=== PATIENT | female | born 1935 | race Hispanic/Latino ===

== ENCOUNTER 2018-08-09 07:23 | Day surgery (SDC) | payer MEDICARE ==
[2018-08-09] MEDS ORDERED: ECOTRIN PO ONE (08:03)
[2018-08-09 08:42] LABS: Basophils % (Auto) 0.6 % (0.0-1.8); Eosinophils # (Auto) 0.1 K/mm3 (0.0-0.4); Eosinophils % (Auto) 1.8 % (0.0-4.3); Hematocrit 39.6 % (30.3-42.9); Hemoglobin 13.3 gm/dl (10.1-14.3); Lymphocytes # (Auto) 1.3 K/mm3 (1.2-5.4); Lymphocytes % (Auto) 28.8 % (13.4-35.0); Mean Corpuscular HGB Conc 34 % (30-34); Mean Corpuscular Volume 94 fl (79-97); Monocytes # (Auto) 0.4 K/mm3 (0.0-0.8); Monocytes % (Auto) 8.1 % (0.0-7.3); Platelet Count 159 K/mm3 (140-440); Red Blood Count 4.23 M/mm3 (3.65-5.03); Red Cell Distribution Width 13.2 % (13.2-15.2)
[2018-08-09 08:53] LABS: INR 0.91 (0.87-1.13)
[2018-08-09 08:54] LABS: Partial Thromboplastin Time 26.4 Sec. (24.2-36.6)
[2018-08-09 08:57] LABS: BUN/Creatinine Ratio 33; Blood Urea Nitrogen 23 mg/dL (7-17); Calcium 9.3 mg/dL (8.4-10.2); Hemolysis Index 4
[2018-08-09] MEDS: NACL 0.9% 500 ML 500 ML IV SCH ×2 (09:03→11:11)
[2018-08-09] MEDS ORDERED: HEPARIN/NS 5000 UNIT/500ML(CATH LAB) 1,000 ML IR ONE (10:05)
[2018-08-09] MEDS ORDERED: VERSED ONE (10:51)
[2018-08-09] MEDS: SUBLIMAZE ONE ×2 (11:08→11:17)
[2018-08-09] MEDS: XYLOCAINE 2% INFILTRATI ONE ×2 (11:10→11:14)
[2018-08-09] MEDS: CALAN ONE ×3 (11:10→11:15)
[2018-08-09] MEDS: HEPARIN 10,000 UNITS/10 ML ONE ×3 (11:10→11:15)
[2018-08-09] MEDS: NITROGLYCERIN SYRINGE 3 ML ONE ×3 (11:11→11:15)
--- NOTE | 2018-08-09 13:33 | Short Stay Summary ---
Short Stay Documentation Date of service: 08/09/18 - History H&P: obtained from office - Allergies and Medications Current Medications: Allergies No Known Allergies Allergy (Unverified 08/09/18 07:24) Home Medications Medication Instructions Recorded Confirmed Last Taken Type Apixaban [Eliquis] 5 mg PO BID #60 tablet 08/09/18 Unknown Rx Aspirin [Aspirin BABY CHEW TAB] 81 mg PO QDAY 08/09/18 08/09/18 08/07/18 History 1 tab Gabapentin 600 mg PO TID 08/09/18 08/09/18 08/08/18 History 1 tab Montelukast [Singulair] 10 mg PO QPM 08/09/18 08/09/18 08/08/18 History 1 tab traMADol [Ultram 50 MG tab] 50 mg PO DAILY 08/09/18 08/09/18 08/08/18 History 1 tab Active Medications Sodium Chloride (Nacl 0.9% 500 Ml) 500 mls @ 50 mls/hr IV DIRECT LATASHA Stop: 08/09/18 18:59 Last Admin: 08/09/18 11:11 Dose: 50 mls/hr Documented by: - Brief post op/procedure progress note Date of procedure: 08/09/18 Pre-op diagnosis: cp; abnormal stress test Post-op diagnosis: same Procedure: LHC - see dictated cath report Anesthesia: local Estimated blood loss: none Condition: stable - Disposition Condition at discharge: Good Disposition: [id number] TO HOME OR SELFCARE - Discharge Diagnoses (1) Chest pain Status: Chronic (2) Abnormal stress test Status: Chronic (3) Atrial fibrillation Status: Chronic (4) Hyperlipidemia Status: Chronic Short Stay Discharge Plan Activity: advance as tolerated Diet: low cholesterol Wound: open to air, keep clean and dry, per your surgeon's advice Additional Instructions: follow up with Primary Medical Doctor in 1 week, return to ER for medical emergencies. Follow up with: JUAN CARLOS DILL MD [Primary Care Provider] - 7 Days ELSA ADAMS MD [Staff Physician] - 7 Days Forms: [facility] PCI D/C Instructions Prescriptions: Apixaban [Eliquis] 5 mg PO BID #60 tablet
--- NOTE | 2018-08-09 13:34 | Cardiac Catherization Report ---
CARDIAC CATHETERIZATION REFERRING PHYSICIAN: Josiah Vazquez MD INDICATION FOR PROCEDURE: The patient is an exceedingly pleasant 82-year-old female with recurrent chest pain, who has an abnormal stress test, referred for left heart catheterization. Risks, benefits, alternatives discussed at length prior to obtaining informed consent. PROCEDURE IN DETAIL: The patient was brought to the catheterization lab in a postabsorptive state, prepped and draped in a sterile fashion. A 2 mL of 2% lidocaine used to anesthetize the right wrist. A standard 6-Bhutanese hydrophilic sheath used to cannulate the right common femoral artery via modified Seldinger technique. All exchanges performed to exchange a J-tip guidewire. JL3.5 catheter used to engage the left main. No dampening or ventricularization. Cineangiography performed in all projections. JR4 catheter used to cross the aortic valve under fluoroscopic guidance. Left ventriculography performed in 30 CHATTERJEE and 30 LATVIAN projection via hand injections. Catheter flushed. Manual pullback performed with continuous pressure monitoring. Due to recurrent chest pain and normal coronaries, decided to proceed with a root aortogram in the LATVIAN projection with power injector. Next, catheter removed from the body of wire, sheath removed. Manual pressure used for hemostasis and there were no complications. The patient tolerated the procedure well. DATA: I directly supervised the administration of moderate sedation from 11:08 a.m. to 11:35 a.m. with fentanyl and Versed. FINDINGS: Aortic pressure is 130/50, LV pressure is 130, LVEDP of 18 mmHg. The patient remained in normal sinus rhythm with PACs throughout the procedure. Left ventriculography reveals normal systolic performance with estimated ejection fraction of 55% to 60%. No evidence of aortic stenosis. CORONARY ANATOMY: This is a right dominant system. Right coronary is a moderate sized vessel, courses AV groove, distally bifurcates in the posterior and posterolateral branches. No discrete stenosis noted. Left main without significant disease, bifurcates left anterior descending and left circumflex. LAD is a moderate sized vessel, courses anterior intergroove, wraps around the apex. No significant disease in the LAD or diagonal system. Left circumflex, moderate sized vessel, courses AV groove. No significant disease. Root aortography reveals normal contour, normal grade vessel anatomy, no evidence of dissection or penetrating aortic ulcer, no evidence of aortic insufficiency. CONCLUSIONS: 1. No angiographic evidence of significant epicardial coronary disease in this right dominant system. 2. Normal left ventricular systolic performance, estimated ejection fraction of 55% to 60%. 3. No evidence of aortic stenosis. 4. Root aortography without evidence of dissection, penetrating aortic ulcer, or aortic insufficiency. 5. Normal LVEDP. The patient is clinically stable. No chest pain, doing well. Continue optimal medical therapy with primary and secondary risk factor modification. Results of procedure explained to the patient and family. All questions and concerns were addressed. Standard radial care. Follow up with me in the office. ADDENDUM She is found to have atrial fibrillation on a Holter monitor. The plan was to start Eliquis today once catheterization is complete and unremarkable. We will start this, discussed with family . She is not at fall risk. No history of bleeding diathesis. Fall precautions also discussed. We will start Eliquis at 5 mg twice a day and will have follow up in the office with us. JOB# [id number] GAVINO/AMADEO
[2018-08-09 14:53] VITALS: BP 108/41
== END 2018-08-09 14:59 | disposition home or self-care (01) ==
LOC: CATHLABREC 07:23
PROVIDERS: ATTEND Internal Medicine
DX: R07.89 Other chest pain (principal); R94.39 Abnormal result of other cardiovascular function study; I48.91 Unspecified atrial fibrillation; E78.5 Hyperlipidemia, unspecified; J44.9 Chronic obstructive pulmonary disease, unspecified; Z98.49 Cataract extraction status, unspecified eye; M19.90 Unspecified osteoarthritis, unspecified site; Z98.890 Other specified postprocedural states; Z79.899 Other long term (current) drug therapy; Z79.82 Long term (current) use of aspirin
CPT/HCPCS: 36415; 80048; 85025; 85610; 85730; 93005; 93010; 93458; 93567; 99156; 99157; C1894; J1644; J2250; J3010; J7040; Q9967